=== PATIENT | male | born 1990 | race Caucasian/White ===

== ENCOUNTER 2017-05-26 06:33 | Day surgery (SDC) | payer OTHER ==
--- NOTE | 2017-05-25 14:43 | RADRPT ---
PROCEDURE: XR Chest. CLINICAL INDICATION: Preop TECHNIQUE: Single portable view of the chest was obtained COMPARISON: No priors for comparison FINDINGS: The trachea is midline. The cardiac silhouette and pulmonary vascularity are within normal limits. T he lungs are clear. The costophrenic angles are sharp. IMPRESSION: 1. No evidence of acute cardiopulmonary disease. RPTAT: AAPP Physician Kiana Date Time Electronically viewed and signed by Physician Kiana on 05/25/2017 14:42 JUAN RAMON/
[2017-05-25 16:00] VITALS: BMI 24.1
[2017-05-26] VITALS (9 sets, daily range): BP systolic 106–140; BP diastolic 51–81; PULSE 65–114; RESP 10–35; Ht 172.7 cm; Wt 70.1 kg
[~2017-05-26] VITALS: Ht 172.7 cm; Wt 70.1 kg
[~2017-05-26 06:33] MED LIST: ATROPINE 1 MG/10 ML SYRINGE IV PRN; DIPHENHYDRAMINE 50 MG INJ IV PRN; EPHEDrine SULFATE 50 MG/5 ML SYG IV PRN; FENTAnyl 50 MCG/ML VIAL IV PRN; HYDROmorphONE (0.2 MG/ML) 10ML SYG IV PRN; LABETALOL HCL 20MG INJ IV PRN; MEPERIDINE 25 MG INJ IV PRN; MIDAZOLAM 1 MG/ML 2 ML INJ IV PRN; ONDANSETRON 4 MG INJ IV PRN; OXYCODONE/ACETAMINOPHEN (5/325) TAB PO PRN; hydrALAzine 20 MG INJ IV PRN; morphine (1 MG/ML) 10ML SYRINGE IV PRN
[2017-05-26] MEDS ORDERED: CEFAZOLIN 1 GM INJ ONE (07:00)
[2017-05-26] MEDS ORDERED: LIDOCAINE 2% (SDV) 5 ML INJ ONE (07:09)
[2017-05-26] MEDS ORDERED: NEOSTIGMINE 3 MG/3 ML SYRINGE ONE (07:09)
[2017-05-26] MEDS ORDERED: GLYCOPYRROLATE 0.4 MG INJ ONE (07:09)
[2017-05-26] MEDS ORDERED: ROCURONIUM 50 MG INJ ONE (07:09)
[2017-05-26] MEDS ORDERED: PROPOFOL 20 ML ONE (07:09)
[2017-05-26] MEDS ORDERED: FENTAnyl 50 MCG/ML VIAL ONE (07:10)
[2017-05-26] MEDS ORDERED: MIDAZOLAM 1 MG/ML 2 ML INJ ONE (07:10)
[2017-05-26] MEDS ORDERED: DEXAMETHASONE 4 MG/ML 1 ML INJ ONE (07:10)
[2017-05-26] MEDS ORDERED: ONDANSETRON 4 MG INJ ONE (07:10)
[2017-05-26] MEDS ORDERED: SUGAMMADEX SODIUM 200 MG/2 ML VIAL IV ONE (07:11)
[2017-05-26] MEDS ORDERED: LACTATED RINGER'S 1,000 ML IV SCH (07:30)
--- NOTE | 2017-05-26 07:33 | HPN ---
Date/Time of Note Date/Time of Note DATE: 05/26/17 TIME: 07:33 Interval H&P Admission Note Pt. seen H&P reviewed: No system changes KEVAN HANSON MD May 26, 2017 07:33
[2017-05-26] MEDS ORDERED: BUPIVACAINE 0.25% (MPF) 30 ML INJ ONE (07:58)
[2017-05-26] MEDS ORDERED: LABETALOL HCL 20MG INJ ONE (08:19)
[2017-05-26] MEDS ORDERED: BUPIVACAINE 0.5% (SDV) 30 ML INJ ONE (08:21)
[2017-05-26] MEDS ORDERED: HYDROCODONE/APAP (5/325) TAB PO PRN (09:00)
--- NOTE | 2017-05-26 09:06 | OPR ---
Date/Time of Note Date/Time of Note DATE: 05/26/17 TIME: 09:02 Operative Report Procedure Date: May 26, 2017 Preoperative Diagnosis Left varicocele Postoperative Diagnosis Left varicocele Operation/Procedure Performed Left spermatic vein ligation Surgeon see signature line [employer] Operator None Anesthesia Type: general Anesthesiologist: PATEL AVILES MD Estimated Blood Loss: 0 - 10 ml's Transfusion none Specimen Fragment of left spermatic vein Grafts/Implants none Complications none Pt Condition Post Procedure: stable Indications Left varicocele Procedure Description The patient was brought to the operating room and timeout was done. The patient was identified by his name birthdate and the procedure. The patient was given then general anesthesia and positioned in the supine position. A roll of towel was put underneath his left flank. The left side of the abdomen, inguinal area was shaved and prepped in the usual sterile manner. An incision was made 1 inch medial to the superior edge of the iliac crest and extended for about 10 cm. The incision was deepened through the subcutaneous tissue then the aponeurosis of the external oblique muscle was incised and the internal oblique and transversalis fascia were split and the retroperitoneal area was entered. The spermatic cord was identified and isolated. 1/4 inch [place] drain was passed around it. The dilated spermatic vein was isolated and ligated with 2-0 black silk proximally and distally and the piece in between was excised. Small additional vein was noted and ligated proximally and distally and cut in between. The wound was then irrigated and there were no bleeders. The transversalis fascia and internal oblique muscle were closed with [id number] 0 Vicryl interrupted sutures. The external oblique fascia was closed also in similar fashion. The subcutaneous tissue was approximated with 3-0 Vicryl after giving the patient half percent Marcaine injection for local anesthesia. The skin was approximated with josie. And the incision was covered with a sterile dressing and the patient transferred to recovery room in a stable and satisfactory condition KEVAN HANSON MD May 26, 2017 09:06
[2017-05-26] MEDS ORDERED: FLUMAZENIL 0.5 MG INJ ONE (09:07)
== END 2017-05-26 11:24 | disposition home or self-care (01) ==
LOC: SDS 06:33
PROVIDERS: ATTEND Urology
DX: I86.1 Scrotal varices (principal)
CPT/HCPCS: 55530; 71010; 88305; J0690; J1100; J2250; J2405; J3010; Z7512; Z7610; J2710